=== PATIENT | male | born 1975 | race African-American/Black ===

== ENCOUNTER 2023-05-29 08:42 | Outpatient (OUT) | payer OTHER, SELFPAY ==
--- NOTE | 2023-05-29 08:53 | P.CN_ITS ---
Consult Note: HPI Data of Consult Patient: known to practice within the last 3 years Consult date: 05/29/23 Requesting Physician: WILLIS MARTINEZ NP Primary Care Provider: GILDARDO GONZALEZ Consult Narrative Narrative: Patient is here for f/u of chronic low back and left leg pain with numbness at times . He prefers no interventional tx at this time. Pain today is 4/10 . No new sensorimotor sx or bowel or bladder issues. Medication regimen assists patient to better complete ADLs. Denies adverse medication SE. OARRS reviewed. He would like to try aquatic therapy. cc:: CC: WILLIS MARTINEZ NP Review of Systems ROS0 Status of ROS 10 or more systems reviewed and unremarkable except as noted in history and below Musculoskeletal Reports: extremity pain Exam Constitutional Documenting provider has reviewed patient's vital signs: yes Common normals: no apparent distress, average body habitus, oriented x3, no limitations, healthy appearing, alert and well nourished General appearance: cooperative, comfortable and well developed Orientation/consciousness: Yes awake, Yes oriented to person, Yes oriented to place and Yes oriented to time [facility] Common normals: normocephalic and moist oral mucous membranes Respiratory Common normals: normal respiratory effort, no retractions and no use of accessory muscles Effort & inspection: able to speak in complete sentences and symmetric chest movement Back & Pelvis Lumbar spine/lower back: normal to inspection, pain with ROM, paraspinal muscle tenderness, paraspinal muscle spasm and straight leg raise negative bilaterally Extremity Common normals: normal to inspection, normal capillary refill and no pedal edema Assessment and Plan Assessment and Plan (1) Lumbar spondylosis: (2) Muscle spasm: Plan aquatic PT f/u 3 months
== END 2023-05-29 08:43 | disposition home or self-care (01) ==
LOC: PM 08:47
PROVIDERS: PCP Family Medicine; Visit Provider Nurse Practitioner
DX: M47.816 Spondylosis without myelopathy or radiculopathy, lumbar region (principal); M62.838 Other muscle spasm
CPT/HCPCS: G0463

== ENCOUNTER 2023-08-26 08:50 | Outpatient (OUT) | payer OTHER, SELFPAY ==
--- NOTE | 2023-08-26 09:33 | PM.CN ---
Consult Note: HPI Data of Consult Patient: known to practice within the last 3 years Requesting Physician: Jessica Soler NP Primary Care Provider: GILDARDO GONZALEZ Consult Narrative Reason for consult: f/u Narrative: John Rider a pleasant 48 year old male presents for evaluation and management of chronic low back pain. Pain 4/5 today in low back with intermittent radiculopathy to right and left lower leg. Pain aching today, tingling comes and goes in left leg. Patient has noticed benefit from current medication regimen without side effects, has failed to respond to procedures in the past. cc:: CC: Jessica Soler NP Review of Systems ROS Status of ROS 10 or more systems reviewed and unremarkable except as noted in history and below Musculoskeletal Reports: back pain Meds Home Medications and Allergies Home Medications Medication Instructions Recorded Confirmed Type aspirin 81 mg capsule 81 mg PO DAILY 05/29/23 05/29/23 History baclofen 10 mg tablet 10 mg PO Q8H PRN muscle spasm 05/29/23 05/29/23 History celecoxib 200 mg capsule 200 mg PO BID 05/29/23 05/29/23 History hydrocodone 5 mg-acetaminophen 325 1 tab PO TID 05/29/23 05/29/23 History mg tablet pregabalin 150 mg capsule 150 mg PO TID 05/29/23 05/29/23 History zolpidem 12.5 mg tablet,extended PO 05/29/23 History release,multiphase hydrocodone 5 mg-acetaminophen 325 1 tab PO TID PRN pain #90 tabs 06/18/23 Rx mg tablet hydrocodone 5 mg-acetaminophen 325 1 tab PO TID PRN pain #90 tabs 06/18/23 Rx mg tablet pregabalin 150 mg capsule (Lyrica) 150 mg PO TID #90 caps 06/18/23 Rx pregabalin 150 mg capsule (Lyrica) 150 mg PO TID #90 caps 06/18/23 Rx hydrocodone 5 mg-acetaminophen 325 1 tab PO TID PRN pain #90 tabs 07/21/23 Rx mg tablet hydrocodone 5 mg-acetaminophen 325 1 tab PO TID PRN pain #90 tabs 08/26/23 Rx mg tablet Allergies Allergy/AdvReac Type Severity Reaction Status Date / Time ciprofloxacin [From Cipro] Allergy Unknown Verified 05/29/23 13:50 Exam Constitutional Documenting provider has reviewed patient's vital signs: yes Common normals: no apparent distress, average body habitus, oriented x3, no limitations, healthy appearing, alert and well nourished General appearance: cooperative, comfortable and well developed Orientation/consciousness: Yes awake, Yes oriented to person, Yes oriented to place and Yes oriented to time [facility] Common normals: normocephalic and moist oral mucous membranes Respiratory Common normals: normal respiratory effort, no retractions and no use of accessory muscles Effort & inspection: able to speak in complete sentences and symmetric chest movement Back & Pelvis Lumbar spine/lower back: normal to inspection, pain with ROM, paraspinal muscle tenderness, paraspinal muscle spasm and straight leg raise negative bilaterally Extremity Common normals: normal to inspection, normal capillary refill and no pedal edema Assessment and Plan Assessment and Plan (1) Lumbar spondylosis: (2) Chronic prescription opiate use: Assessment and Plan: I have refilled the patient's opioid prescriptions at the above noted dose and schedule.? I feel these medications are improving the patient's quality of life and allow them to tolerate activities of daily living as well as participate in recreational activity.? The patient does not report intolerable side effects. The patient is NOT opioid naive and non-pharmacologic and non-opioid treatment has failed to significantly relieve the patient's pain and improve functionality. The patient has a diagnosis that is related to a somatic or visceral pain etiology. ? ?? I reviewed with the patient the potential risks and side effects with the use of? opioid medications including but not limited to respiratory depression,? sedation, and even . I verified the patient has access to naloxone should? these effects occur. I advised the patient to avoid the use of any other? sedation substances including alcohol, THC, and benzodiazepines while? taking opioid medications due to the risk of compounding side effects and? detrimental outcomes. I reviewed the [employer], pain treatment agreement, urine? drug screen, and opioid start talking forms. The patient was advised to let? their family know they had Naloxone in case they would need to administer? the medication.? ?? A drug screen was completed within the last year, and no aberrancies were noted regarding their use of controlled substances. The patient understands they are subject to the terms and conditions of the pain contract that they have signed. ? ?? I have checked an OARRS report on this patient today and there are no aberrancies noted in the prescribing history.? Patient able to do physical labor, maintain exercise regimen at the gym, care for self and family with the help of these medications no side effects takes TID PRN, encouraged to utilize BID-TID PRN with tylenol celebrex PRN heat/ice tens no current concerns for misuse/abuse/addiction (3) Muscle spasm: (4) Fusion of lumbar spine: Plan continue current medication regimen, extensive conversation today about care plan and goals to increase functional ability. Patient is very active with the help of his medication regimen and looking for ways to improve. restart aquatherapy discussed starting low back stretching regimen continue HEP narcan previously prescribed and discussed declining additional procedures, does not feel they benefit him enough to be worth it f/u 3 months for medication management
== END 2023-08-26 08:51 | disposition home or self-care (01) ==
PROVIDERS: PCP Family Medicine; Visit Provider Nurse Practitioner
DX: M47.816 Spondylosis without myelopathy or radiculopathy, lumbar region (principal); Z79.891 Long term (current) use of opiate analgesic
CPT/HCPCS: G0463

== ENCOUNTER 2023-12-02 10:09 | Outpatient (OUT) | payer OTHER, SELFPAY ==
--- OUTSIDE RECORDS SUMMARY | 2023-12-02 10:21 | XMS_ITS | CCD ---
Author Name Unknown Address [address] [place] [address] Organization [facility] Care Team Providers Care Marketing Strategy Manager Name Role Phone MD Omid Moran Attending Provider [phone] ., DR LAURA Joyce Admitting Unavailable KANG ., DR LAURA Joyce Attending Unavailable CARLOS, DR EWING Primary Care Unavailable GEORGES ., VICKIE Consulting Unavailable HALKER ., WILLIS Admitting Unavailable HALKER ., WILLIS Attending Unavailable CARLOS, DR EWING Primary Care Unavailable KANG ., DR LAURA Joyce Admitting Unavailable KANG ., DR LAURA Joyce Attending Unavailable DR KELLY PITTS Primary Care Unavailable GEORGES ., VICKIE Consulting Unavailable KANG ., DR LAURA Joyce Admitting Unavailable KANG ., DR LAURA Joyce Attending Unavailable CARLOS, DR EWING Primary Care Unavailable GEORGES ., VICKIE Consulting Unavailable LAKSHMIPATHY ., NARENDRANATH Admitting Rashmi vailable LAKSHMIPATHY ., ESTRELLA Attending Rashmi vailable DR KELLY PITTS Primary Care Unavailable LAKSHMIPATHY ., NARENDRANATH Consulting Rashmi vailable LEALEJANDRO Consulting Unavailable KANG ., DR LAURA Joyce Admitting Unavailable KANG ., DR LAURA Joyce Attending Unavailable DR KELLY PITTS Primary Care Unavailable GEORGES ., VICKIE Consulting Unavailable LAKSHMIPATHY ., NARENDRANATH Admitting Rashmi vailable LAKSHMIPATHY ., NARENDRANATH Attending Rashmi vailable DR KELLY PITTS Primary Care Unavailable LAKSHMIPATHY ., NARENDRANATH Consulting Rashmi vailable LAKSHMIPATHY ., NARENDRANATH Admitting Rashmi vailable LAKSHMIPATHY ., MOHANENDCMATH Attending Rashmi vailable DR KELLY PITTS Primary Care Unavailable HALKER ., WILLIS Consulting Unavailable KELLY PITTS Attending Unavailable Kelly Pitts MD Primary Care Provider [phone] Allergies Allergy Classification Reported Allergen(s) Allergy Type Date of Onset Reaction(s) Facility (1 source) Ciprofloxacin Drug Allergy 9 [facility] Repository (1 source) Ciprofloxacin Drug Allergy 3 GI intolerance [facility] Work Phone: Medications Current Medications Medication Drug Class(es) Dates Sig (Normalized) Sig (Original) amLODIPine 5 mg oral tablet (1 source) Dihydropyridine Calcium Channel Rober Start: 05-01-20 End: 04-30-20 take 1 tablet by mouth in the morning amLODIPine (Norvasc) 5 MG tablet Indications: Hypertension, unspecified type (CMS/HCC) Take 1 tablet (5 mg) by mouth in the morning. 90 tablet 3 05/01/2023 04/30/2024 Active aspirin 81 mg delayed release oral tablet (1 source) Platelet Aggregation Inhibitor, Nonsteroidal Anti-inflammatory Drug Start: 05-01-20 End: 04-30-20 take 1 tablet by mouth in the morning aspirin 81 MG EC tablet Indications: Type 2 diabetes mellitus without complication, without long-term current use of insulin (CMS/HCC) Take 1 tablet (81 mg) by mouth in the morning. 90 tablet 3 05/01/2023 04/30/2024 Active atorvastatin 10 mg oral tablet (1 source) HMG-CoA Reductase Inhibitor take 1 tablet by mouth in the morning atorvastatin (Lipitor) 10 MG tablet Take 10 mg by mouth in the morning. 0 Active celecoxib 200 mg oral capsule (1 source) Nonsteroidal Anti-inflammatory Drug take 1 capsule by mouth in the morning celecoxib (CeleBREX) 200 MG capsule Take 200 mg by mouth in the morning and 200 mg before bedtime. 0 Active hydroCHLOROthiazide 25 mg oral tablet (1 source) Thiazide Diuretic Start: 11-16-19 take 1 tablet by mouth in the morning hydroCHLOROthiazide (HYDRODiuril) 25 MG tablet Indications: Primary hypertension (CMS/HCC) Take 1 tablet (25 mg) by mouth in the morning. 90 tablet 0 11/16/2023 Active losartan potassium 100 mg oral tablet (1 source) Angiotensin 2 Receptor Rober Start: 11-11-19 24 take 1 tablet by mouth once daily losartan (Cozaar) 100 MG tablet Indications: Benign essential hypertension (CMS/HCC) take 1 tablet by mouth once daily 90 tablet 0 11/11/2023 Active metFORMIN hydrochloride 500 mg oral tablet (1 source) Biguanide Start: 06-05-20 End: 06-04-20 24 take 1 tablet by mouth in the morning metFORMIN (Glucophage) 500 MG tablet Indications: Type 2 diabetes mellitus without complication, without long-term current use of insulin (CMS/HCC) Take 1 tablet (500 mg) by mouth in the morning and 1 tablet (500 mg) in the evening. Take with meals. 180 tablet 3 06/05/2023 06/04/2024 Active pregabalin 150 mg oral capsule (1 source) take 1 capsule by mouth every twelve hours pregabalin (Lyrica) 150 MG capsule 1 capsule every 12 (twelve) hours. 0 Active SITagliptin 100 mg oral tablet (1 source) Dipeptidyl Peptidase 4 Inhibitor Start: 11-02-19 End: 11-01-19 take 1 tablet by mouth in the morning SITagliptin (Januvia) 100 MG tablet Indications: Type 2 diabetes mellitus without complication, without long-term current use of insulin (CMS/HCC) Take 1 tablet (100 mg) by mouth in the morning. 90 tablet 3 11/02/2023 11/01/2024 Active 24 hr testosterone 0.0833 mg/hr transdermal system (1 source) Androgen Start: 11-04-19 End: 12-04-19 apply 1 dose transdermal route every twenty-four hours in the morning testosterone (Androderm) 2 MG/24HR Indications: Hypogonadism in male Place 1 patch over 24 hours on the skin in the morning. 30 patch 0 11/04/2023 12/04/2023 Active zolpidem tartrate 12.5 mg extended release oral tablet (2 sources) gamma-Aminobutyric Acid-ergic Agonist Start: 11-27-19 take 1 tablet by mouth at bedtime zolpidem CR (Ambien CR) 12.5 MG ER tablet Indications: Primary insomnia take 1 tablet by mouth at bedtime 90 tablet 0 11/27/2023 Active Start: 09-04-2023 End: 11-27-2023 take 1 tablet by mouth at bedtime zolpidem CR (Ambien CR) 12.5 MG ER tablet Indications: Primary insomnia Take 1 tablet (12.5 mg) by mouth at bedtime. 90 tablet 0 09/04/2023 11/27/2023 Discontinued Problems Active Problems Problem Classification Problem Date Documented Date Episodic/Chronic Anxiety disorders (1 source) Generalized anxiety disorder; Translations: [Generalized anxiety disorder] Onset: 05-17-2010 06-11-2023 Chronic Attention-deficit, conduct, and disruptive behavior disorders (1 source) Attention deficit hyperactivity disorder, combined type; Translations: [Attention-deficit hyperactivity disorder, combined type] Onset: 12-13-2020 06-11-2023 Chronic Diabetes mellitus without complication (1 source) Type 2 diabetes mellitus without complication; Translations: [Type 2 diabetes mellitus without complications] Onset: 11-21-2019 06-11-2023 Chronic Disorders of lipid metabolism (1 source) Mixed hyperlipidemia; Translations: [Mixed hyperlipidemia] Onset: 12-13-2020 06-11-2023 Chronic Essential hypertension (1 source) Benign essential hypertension; Translations: [Essential (primary) hypertension] Onset: 05-08-2017 06-11-2023 Chronic Miscellaneous mental health disorders (2 sources) Primary insomnia; Translations: [Primary insomnia] Onset: 11-21-2019 11-26-2023 Chronic Mood disorders (1 source) Major depression, single episode; Translations: [Major depressive disorder, single episode, unspecified] Onset: 03-01-2021 06-11-2023 Chronic Other nervous system disorders (1 source) Other chronic pain; Translations: [OTHER CHRONIC PAIN] Onset: 2023 Chronic Other nervous system disorders (5 sources) Chronic pain syndrome; Translations: [CHRONIC PAIN SYNDROME] Onset: 05-26-2022 Chronic Other nervous system disorders (1 source) Chronic pain; Translations: [Other chronic pain] Onset: 09-03-2017 06-11-2023 Chronic Other nutritional; endocrine; and metabolic disorders (1 source) Morbid obesity; Translations: [Morbid (severe) obesity due to excess calories] Onset: 10-22-2016 06-11-2023 Chronic Spondylosis; intervertebral disc disorders; other back problems (13 sources) Spondylosis without myelopathy or radiculopathy, lumbar region; Translations: [Postlaminectomy syndrome, not elsewhere classified] Onset: 08-26-2019 Chronic Spondylosis; intervertebral disc disorders; other back problems (8 sources) Muscle spasm of back; Translations: [Intervertebral disc disorders with radiculopathy, lumbar region] Onset: 11-27-2022 Episodic Unclassified (4 sources) LOW BACK PAIN, UNSPECIFIED; Translations: [LOW BACK PAIN, UNSPECIFIED] Onset: 05-26-2022 Past or Other Problems Problem Classification Problem Date Documented Da te Episodic/Chronic Unclassified (1 source) LOW BACK PAIN, UNSPECIFIED; Translations: [LOW BACK PAIN, UNSPECIFIED] Onset: 05-22-2022 Results Test Name Value Interpretation Reference Range Facil ity XR LSPINE MIN 4 VIEWSon 05-0 XR LSPINE MIN 4 VIEWS EXAM: XR LSPINE MIN 4 VIEWS HISTORY: Post-laminectomy syndrome COMPARISON: None. TECHNIQUE: 2 views FINDINGS/IMPRESSION: Satisfactory alignment. Posterior left-sided transpedicular fusion of L4-L5 with disc spacers. Intact hardware. Multilevel endplate degenerative changes, disc disease, anterior spurring and facet arthropathy. No acute fracture or subluxation. Unremarkable soft tissues. Electronically authenticated by: ALEJANDRO VELARDE Date: 2023-02-16 12:36 Normal [facility] 04-30-2022 L -- ---- Specimen: [id number] Received: 05/01/22 Status: KIM Kim Num: [id number] Spec Type: Surgical Subm Dr: Omid Moran MD Tissues: A Skin-Other than Cyst, tag, debridement or plastic repair (CHEST WALL MASS) Procedures: HE Stain, Gross/Micro L4 ---- Patient Age/Sex Location Account Attending Physician ---- John Rider 47/M MD [id number] Omid Moran MD ---- SPEC NUM: [id number] RECD: 05/01/22 STATUS: KIM KIM NUM: [id number] COLLEEN: 04/30/[address] [facility] [address]: Omid Moran MD ENTERED: 05/01/[address] [facility] [address]: [facility] [place] SPEC TYPE: Surgical DEPT: S ENTERED BY: [id number] RECV BY: [id number] ORDERED: HE Stain, Gross/Micro L4 ORDERED: HE Stain, Gross/Micro L4 Pathological Diagnosis Soft tissue, chest wall, excision: - Ruptured and inflamed epidermal inclusion cyst Clinical Information Chest wall mass Gross Description Received in 10% neutral buffered formalin, labeled with the patient's name and chest wall mass is a 2.2 x 1.8 x 1.4 cm yellow osorio, rubbery tissue which has been previously partially incised revealing yellow red material surrounded by yellow, lobular fat. Furniture Stainer sections submitted labeled A1. (LG/JS) Microscopic Description One glass slide with H E stained material has been examined. The microscopic findings support the above pathologic diagnosis. [id number] ---- ---- Specimen: [id number] Received: 05/01/22 Status: KIM Romeromaksim Num: [id number] Spec Type: Surgical Subm Dr: Omid Moran MD Tissues: A Skin-Other than Cyst, tag, debridement or plastic repair (CHEST WALL MASS) Procedures: HE Stain, Gross/Micro L4 ---- Patient: John Rider [id number] (Continued) ---- Signed (signature on file) Nava Cox MD 05/02/22 [address] [facility] Encounters Encounter Date Encounter Type Care Provider Facility Start: 11-26-2023 Refill Kelly Zurita Work Phone: [facility] Comment on above: Primary insomnia Start: 11-02-2023 End: 11-02-2023 ambulatory KELLY PITTS Not Available Start: 05-28-2023 ambulatory WILLIS MARTINEZ . Facili ty:[facility] Start: 02-26-2023 End: 02-27-2023 ambulatory NARENDRANATH LAKSHMIPATHY . Facility:[facility] Start: 02-16-2023 End: 02-17-2023 ambulatory NARENDRANATH LAKSHMIPATHY . Facility:[facility] Start: 01-27-2023 End: 01-28-2023 ambulatory NARENDRANATH LAKSHMIPATHY . Facility:[facility] Start: 11-27-2022 End: 11-28-[address] LAURA KANG . Facility:[facility] Start: 08-21-2022 End: 08-22-[address] LAURA KANG . Facility:[facility] Start: 05-22-2022 End: 05-23-[address] LAURA KANG . Facility: Start: 04-30-2022 End: 04-30-2022 Departed Referred MD Omid Moran Work Phone: [facility] [place] Start: 03-27-2022 End: 03-28-[address] LAURA KANG . Facility: Plan of Treatment Date Care Activity Detail Author Start: 06-11-2024 Urine screening for protein Diabetes: Urine Protein Screening [facility] Start: 04-17-2024 Influenza vaccination Influenza Vacc ine (#1) [facility] Comment on above: Postponed from 06/19 (Patient Refused) Start: 02-01-2024 Hemoglobin A1c measurement Diabetes: Hemoglobin A1C [facility] Start: 12-03-2023 End: 12-03-2023 Patient encounter procedure 12/03/2023 3:20 PM EST Office Visit [facility] [address] [place] [address] Kelly Pitts MD [address] [place] [address] [facility] Start: 12-06-2021 Glaucoma screening Diabetes: R etinopathy Screening [facility] Start: 1975 Screening for malign ant neoplasm of colon [facility] Healthcare Payers Date Payer Category Payer Unknown FRONTPATH FRONTP ATH [id number] 2022-Present [address] [place] [phone] [id number] 1975 Unknown [id number] 1975 Unknown [id number] 1975 Unknown [id number] 1975 Unknown [id number] 1975 Unknown [id number] 1975 Unknown [id number] 1975 Unknown [id number] 1975 Unknown [id number] 1975 Unknown [id number] 1959 Unknown [id number] 1959 Unknown [id number] Self-pay Self Pay [id number] Social History Date Type Detail Facility Tobacco smoking status AKIS Unknown if ever smoked [facility] Work Phone: Start: 1975 Sex Assigned At Male F [facility] Start: 05-01-2023 Tobacco smoking status NHIS Never smoked tobacco [facility] Start: 05-01-2023 Tobacco use and exposure Smokeless tobacco non-user [facility] Start: 11-02-2023 Alcohol intake Ex-drinker (finding) [facility] Start: 11-02-2023 History of Social function [facility] Start: 11-02-2023 Tobacco use panel [facility] Start: 1975 Sex Assigned At Not on file N [facility] Start: 12-31-2022 Gender identity Identifies as male gender (finding) [facility] Medical Equipment Procedure Code Equipment Code Equipment Origin al Text Equipment Identifier Dates TEST once daily [id number] Start: 07-04-2022 Telephone encounter Note 11-27-2023 Telephone Encounter - Marybeth Montilla - 11/27/2023 9:47 AM EST Note Date & Type Note Facility 11-27-2023 Telephone encount er Note Pt is scheduled , but his testerone was denied and the pharmacy told patient that a PA needs done. Can that please get taken care of. [facility] Note 11-27-2023 Telephone Encounter - Marybeth Montilla - 11/27/2023 9:47 AM ESTTelephone Encounter - Kelly Pitts MD - 11/27/2023 8:25 AM EST Note Date & Type Note Facility 11-27-2023 Miscellaneous Notes Formattin g of this note might be different from the original. Pt is scheduled , but his testerone was denied and the pharmacy told patient that a PA needs done. Can that please get taken care of. Approving, but needs appt for additional refills. documented in this encounter [facility] Telephone encounter Note 11-27-2023 Telephone Encounter - Kelly Pitts MD - 11/27/2023 8:25 AM EST Note Date & Type Note Facility 11-27-2023 Telephone encount er Note Approving, but needs appt for additional refills. [facility] Consultation note 01-27-2023 Note Date & Type Note Facility 01-27-2023 Note CONSULTATION CONSULTATION DATE: 01/27/2023 TO: Kelly Pitts M.D. CHIEF COMPLAINT: Includes bilateral lower back pain. HISTORY: He reports the pain being 5-7/10 pain, sharp in character, increased with activities such as standing, walking and performing transitioning maneuvers. He feels most comfortable in the semi-recumbent position. Denies any change in bowel and bladder habits or new sensorimotor changes in his lower extremities. EXAM: Notable for patient having very mild myofascial spasm of the lumbar paravertebral muscles at best. I could not appreciate any pain with lumbar facet loading maneuvers. I could not elicit any pain pathology stemming from his SI joints or hip joints. IMPRESSION: Patient with chronic pain secondary to post laminectomy syndrome, possible lumbar paravertebral muscle spasms occurring bilaterally. RECOMMENDATIONS: I have recommended a urine toxicology screen at today's visit. We will proceed with a pill count in the near future. I have asked him to trial baclofen for his myofascial spasm, 10 mg pills, half a pill to one pill t. i.d. We had a discussion regarding reducing the use of his [place] at his next visit, once we have him on a baseline dose of baclofen that is tolerable by the patient. We will have him return to the office in two weeks' time. Will follow up with the nurse and monitor his response with change in medication. His SIA on today's visit was 22. As part of providing excellent, safe, comprehensive care, the following was completed at our patient's visit: 1. A medication reconciliation and review to ensure accurate knowledge of current/active medications, including asking our patients to inform us about any [id number] medications or herbal remedies/nutritional supplements/alternative remedies. 2. A review to specifically ensure our patients have had annual screening for: elevated body mass index (BMI, see intake chart for exact total), tobacco use, screening for depression, and screening for unhealthy alcohol use. When screening is concerning, patients are provided with education and the specific recommendation to discuss the concerning health issue and treatment options with their primary care provider. [facility] Consultation note 11-27-2022 Note Date & Type Note Facility 11-27-2022 Note CONSULTATION CONSULTATION DATE: 11/27/2022 HISTORY OF PRESENT ILLNESS: This is a 47-year-old gentleman who returns to the clinic for a three month follow up for his chronic lower back pain. The patient is complaining of 7/10 pain today. It is described as throbbing and stabbing. He is having left lower leg numbness, which is episodic, based on activity. 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 Twisting, pulling, lying, standing, walking greatly aggravate his pain. Medications currently include Celebrex 200 mg b.i.d., [place] 5/325 b.i.d., Lyrica 150 mg b.i.d. and Ambien 12 mg q.h.s. Patient's REVIEW OF SYSTEMS / PAST MEDICAL HISTORY / ALLERGIES and IMAGES have been reviewed and noted on the chart. PHYSICAL EXAM: VITAL SIGNS: Blood pressure is 161/100. Heart rate is 93. Temperature is 98. He is 6'3 , weighs 150 kg. GENERAL IMPRESSION: Pleasant, appropriate, in no acute distress. FOCUSED EXAM - BACK: Range of motion is functional in lateral rotation and flexion/extension. No reproduction of spinal axial pain upon direct compression of the facets. Doron's point is non-tender bilaterally. MUSCULOSKELETAL: Motor is 5/5 bilaterally. Slight muscle weakness noted to left anterior tibialis. Extensors are intact. Muscle tone is good. Patient walks unassisted. NEUROLOGICALLY: Patchy hypoesthesia noted along the L4-5 distribution to the level of the foot. Bilateral patellar reflexes are +1. DIAGNOSIS: Chronic lower back pain, lumbar radiculitis, lumbar degenerative disc disease and lumbar spondylosis. PLAN: Patient had asked for an increase in his [place], which we will not do. He did ask for an increase in his Lyrica due to the increased numbness to his lower leg. Therefore, we will increase his Lyrica 150 mg t.i.d. and refill his [place] at the regular dose of 5/325 b.i.d. Patient will be brought back to the clinic in two months' time and vitamin use was encouraged. Patient agrees with this plan and all questions answered. [facility] Consultation note 08-21-2022 Note Date & Type Note Facility 08-21-2022 Note CONSULTATION CONSULTATION DATE: 08/21/2022 This is a pleasant 47-year-old gentleman returning to the clinic for a 3-month follow-up for his chronic lower back pain. He was last seen on 05/22/2022 which at that time he was doing fairly well. 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 Due to that his pain is rated 6 out of 10 today. Medications include Lyrica 150 mg b.i.d., [place] 5/325 b.i.d., Celebrex 200 mg b.i.d. and Ambien 6.25 mg at h.s. The patient is able to move and function with ADLs but activity such as twisting, pushing, pulling, stairs, bending and lifting aggravate his pain. He does alternate heat and ice which is helpful to his back pain. He does have patchy hypesthesia to his left leg. REVIEW OF SYSTEMS, PAST MEDICAL HISTORY, ALLERGIES AND IMAGES: Have been reviewed and noted in the chart. PHYSICAL EXAM: VITAL SIGNS: Blood pressure 148/92, heart rate is 62. Height is 6'3 , weighs 267 lbs. GENERAL APPEARANCE: Pleasant, appropriate and in no acute distress. FOCUSED EXAM: BACK: Range of motion is functional in lateral rotation and flexion/extension. Paravertebral muscles are non-spasmodic. Mild reproduction of spinoaxial pain to compression along L3, L4 and L5 bilaterally, left is greater than right. Doron's point is nontender. MUSCULOSKELETAL: Motor is 5 out of 5 strength bilaterally. No vasomotor weakness noted. NEUROLOGICAL: Patchy hypesthesia noted diffusely along left lower extremity to the level of ankle. Reflexes are intact, 2 out of 2. DIAGNOSIS: Chronic pain syndrome, chronic lower back pain, lumbar spondylosis and lumbar radiculitis. PLAN: Supportive home measures were discussed with the patient with regards to heat and the use of Voltaren gel for isolated joints. We will refill Ambien today which we will increase to 10 mg q.h.s., [place] will be maintained at5/325 b.i.d., Celebrex 200 mg b.i.d. and Lyrica 50 mg b.i.d. We will see the patient in three months' time unless otherwise indicated. [facility] Consultation note 05-22-2022 Note Date & Type Note Facility 05-22-2022 Note CONSULTATION CONSULTATION DATE: 05/22/2022 HISTORY OF PRESENT ILLNESS: This is a 47-year-old male returning to the clinic, accompanied by his , for chronic lower back pain and a one month follow up. He was last seen on 03/27/2022 which, at that time, he was started on Cymbalta 30 mg. Patient stated, it has made very little difference and he discontinued it on his own. 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 It was discussed back, approximately six months ago, regarding a lumbar epidural steroid injection, and the patient denied. He does prefer to be just medically managed at this time, and states that his sleep pattern is off and he receives a minimal amount of sleep at night. He states, at times, he is awake 24-40 hours. He states that the decreased amount of sleep aggravates his pain and is requesting possible Ambien. He has been prescribed Ambien in the past. Current medications include [place] 5/325 b.i.d., Celebrex 200 mg b.i.d., Lyrica 150 mg b.i.d. Patient's REVIEW OF SYSTEMS / PAST MEDICAL HISTORY / ALLERGIES and IMAGES have been reviewed and they are noted on the chart. PHYSICAL EXAM: VITAL SIGNS: Blood pressure 150/104, heart rate is 85. Temperature is 98.2. He is 6'3 and weighs 122 kg. GENERAL APPEARANCE: Pleasant, appropriate, in no acute distress. is present. FOCUSED EXAM - BACK: Range of motion is functional in lateral rotation and flexion/extension. Minimal spinal axial pain to direct compression along the lower lumbar facets of L3, L4, L5 with radiating pain down the left lower extremity to the lateral aspect. Doron's point is non-tender. MUSCULOSKELETAL: Motor is intact, 5/5 bilaterally. Good muscle tone. Patient walks with a stable gait. No muscle atrophy noted. NEUROLOGICAL: Patchy hypoesthesia noted along the L5 dermatome to the left lower leg to the level just below the knee. +1 bilateral patellar and Achilles reflexes. IMPRESSION: Chronic pain syndrome and lower back pain. PLAN: He will be placed on Ambien CR 6.25 mg q.h.s. Refill for [place] 5/325 b.i.d., and Lyrica 150 mg b.i.d. will be sent for him. He will be followed up in the clinic in three months' time, and he was encouraged to participate in a vitamin regimen and nutrition importance was discussed. Patient agrees with the plan of care. See him in three months' time unless otherwise indicated. [facility] Consultation note 03-27-2022 Note Date & Type Note Facility 03-27-2022 Note CONSULTATION CONSULTATION DATE: 03/27/2022 This 47-year-old male accompanied by his to the clinic for a 3-month follow-up. He was last seen on 03/05/2022 and at that time he was followed up with Dr. Kang. At that time, he was not on his Celebrex or blood pressure medication. Today he reports he has been taking his Celebrex 200 mg b.i.d. in addition to his Lyrica 150 mg b.i.d. and [place] 5/325 b.i.d. The patient did have lumbar ablations back in August of 2022. The patient did initially report success with those ablations. The patient has been increasing his physical workout and he has been able to greatly improve his health in the way of diabetes. But the increased work out has resulted in increased pain. He is working with his PCP on antihypertensives at this time. He reports his pain is 4 out of 10 today to his lower lumbar area, left hip and leg. Activities such as standing, walking, ADLs and activity aggravate his pain. He uses heat nightly which decreases his pain. He denies any new radicular pain or vasomotor changes. REVIEW OF SYSTEMS, PAST MEDICAL HISTORY, ALLERGIES AND IMAGES: Have been reviewed and noted in the chart. PHYSICAL EXAM: VITAL SIGNS: Blood pressure 144/96, heart rate is 87, temperature is 98.2. Height is 6'3 , weighs 129/6 kg. GENERAL APPEARANCE: Pleasant, appropriate; is at bedside. FOCUSED EXAM: BACK: Range of motion is functional, lateral rotation and flexion/extension. No reproduction of spinoaxial pain to direct compression along the lumbar facets of L2, L3 and L4, L5 bilaterally. Doron's point is nontender bilaterally, Ko's and compression test mildly positive. No referral of pain to his groin. But to bilateral hips. MUSCULOSKELETAL: Motor is intact, 5 out of 5 strength bilaterally. Patient has good muscle tone and is stable upon ambulation. NEUROLOGICAL: Patchy hypesthesia noted along L5, S1 dermatome to the left lower leg to the level of the knee. Bilateral patellar is +1. DIAGNOSIS: Chronic lower back pain, lumbar degenerative disk, lumbar spondylosis. PLAN: It was decided to start the patient on Cymbalta 30 mg q. day to gain a better hold of his pain pattern. His [place] dose and frequency will not be changed. He was instructed to maintain his Celebrex as his anti-inflammatory. The patient and his stated understanding and agreed with the plan of care. They will be followed in the clinic in 8 weeks' time. [facility] Signed and Approved by: VICKIE GEORGES . 04/03/2022 16:03:00 [facility] Evaluation note Note Date & Type Note Facility Evaluation note No assessment information availa [facility] Work Phone: Evaluation note Note Date & Type Note Facility Evaluation note Diagnosis Primary insomnia Persistent disorder of initiating or maintaining sleep documented in this encounter [facility] Summary Purpose Family History No Family History Records FoundNo Family History Records FoundNo Family History Records Found Advance Directives No Advanced Directives Records FoundNo Advanced Directives Records FoundNo Advanced Directives Records Found Additional Source Comments Care Teams (unrecognized sec tion and content) Team Status: Inactive Member Role Status Dates Omid Moran MD Attending Provider Active Marketing Strategy Manager Relationship Specialty Start Date End Date Kelly Pitts MD [address] [place] [address] PCP - General Family Medicine 04/17/23 Goals (unrecognized section and content) Goals may be documented in a n alternate section (unrecognized sect ion and content) No Status Records FoundNo Status Records FoundNo Status Records Found INFORMATION SOURCE (unrecogn ized section and content) DATE CREATED AUTHOR 05/10/[address] [facility] DATE CREATED AUTHOR AUTHOR'S ORGANIZ ATION 03/02/2023 [facility] DATE CREATED AUTHOR AUTHOR'S ORGANIZ ATION 11/03/2023 [facility] EPIC Reason for Visit (unrecogniz ed section and content) Reason Comments Med Refill FOR RECORDS PERTAINING TO PATIENTS WHO ARE OR HAVE BEEN ENROLLED IN A CHEMICAL DEPENDENCY/SUBSTANCEABUSE PROGRAM, SOME INFORMATION MAY BE OMITTED. This clinical summary was aggregated from multiple sources. Caution should be exercised in using it in the provision of clinical care. This summary normalizes information from multiple sources, and as a consequence, information in this document may materially change the coding, format and clinical context of patient data. In addition, data may be omitted in some cases. CLINICAL DECISIONS SHOULD BE BASED ON THE PRIMARY CLINICAL RECORDS. [employer] provides no warranty or guarantee of the accuracy or completeness of information in this document.
--- NOTE | 2023-12-02 10:41 | PM.CN ---
Consult Note: HPI Data of Consult Patient: known to practice within the last 3 years Requesting Physician: Jessica Soler NP Primary Care Provider: GILDARDO GONZALEZ Consult Narrative Reason for consult: f/u Narrative: John Rider a pleasant 48 year old male presents for evaluation and management of chronic low back pain. Pain 4/10 today in low back with intermittent radiculopathy to right and left lower leg, does increase to 8/10 with activity, standing walking Pain aching today, tingling comes and goes in left leg. Patient has noticed benefit from current medication regimen without side effects, has failed to respond to procedures in the past. cc:: CC: Jessica Soler NP Review of Systems ROS Status of ROS 10 or more systems reviewed and unremarkable except as noted in history and below Musculoskeletal Reports: back pain Meds Home Medications and Allergies Home Medications Medication Instructions Recorded Confirmed Type aspirin 81 mg capsule 81 mg PO DAILY 05/29/23 05/29/23 History baclofen 10 mg tablet 10 mg PO Q8H PRN muscle spasm 05/29/23 05/29/23 History celecoxib 200 mg capsule 200 mg PO BID 05/29/23 05/29/23 History hydrocodone 5 mg-acetaminophen 325 1 tab PO TID 05/29/23 05/29/23 History mg tablet pregabalin 150 mg capsule 150 mg PO TID 05/29/23 05/29/23 History zolpidem 12.5 mg tablet,extended PO 05/29/23 History release,multiphase hydrocodone 5 mg-acetaminophen 325 1 tab PO TID PRN pain #90 tabs 06/18/23 Rx mg tablet hydrocodone 5 mg-acetaminophen 325 1 tab PO TID PRN pain #90 tabs 06/18/23 Rx mg tablet pregabalin 150 mg capsule (Lyrica) 150 mg PO TID #90 caps 06/18/23 Rx pregabalin 150 mg capsule (Lyrica) 150 mg PO TID #90 caps 06/18/23 Rx hydrocodone 5 mg-acetaminophen 325 1 tab PO TID PRN pain #90 tabs 07/21/23 Rx mg tablet hydrocodone 5 mg-acetaminophen 325 1 tab PO TID PRN pain #90 tabs 08/26/23 Rx mg tablet hydrocodone 5 mg-acetaminophen 325 1 tab PO TID PRN pain #90 tabs 09/21/23 Rx mg tablet hydrocodone 5 mg-acetaminophen 325 1 tab PO TID PRN pain #90 tabs 10/20/23 Rx mg tablet hydrocodone 5 mg-acetaminophen 325 1 tab PO TID PRN pain #90 tabs 11/18/23 Rx mg tablet Allergies Allergy/AdvReac Type Severity Reaction Status Date / Time ciprofloxacin [From Cipro] Allergy Unknown Verified 05/29/23 13:50 Exam Constitutional Documenting provider has reviewed patient's vital signs: yes Common normals: no apparent distress, oriented x3, healthy appearing, alert and well nourished General appearance: cooperative Orientation/consciousness: Yes awake, Yes oriented to person, Yes oriented to place and Yes oriented to time HENMT Common normals: normocephalic, hearing grossly normal bilaterally and moist oral mucous membranes Head and scalp: normocephalic Eye Common normals: PERRL Pupil: PERRL Neck & C-Spine Common normals: full ROM General: normal visual inspection Chest Common normals: inspection of chest normal Respiratory Common normals: normal respiratory effort, no retractions and no use of accessory muscles Effort & inspection: able to speak in complete sentences and symmetric chest movement Back & Pelvis Lumbar spine/lower back: normal to inspection, pain with ROM, paraspinal muscle tenderness, paraspinal muscle spasm and straight leg raise negative bilaterally Extremity Common normals: normal to inspection, normal capillary refill and no pedal edema Neuro Common normals: oriented x3, CN's II-XII intact bilaterally, moves all extremities, no focal motor deficits, no sensory deficits noted and deep tendon reflexes 2+ bilaterally Sensorium/orientation: alert Motor exam: strength 5/5 throughout and no movement abnormalities noted Psych Common normals: mental status grossly normal, thought process normal, cooperative, affect normal, speech normal and activity/motor behavior normal Speech: normal speech Thought process: normal thought process Results Additional Findings Additional findings: I have checked an OARRS report on this patient today and there are no aberrancies noted in the prescribing history.?? A drug screen was completed and reviewed within the last year, and if there has not been a drug screen completed we ordered one today to monitor higher risk, state monitored pain medication use. As part of providing excellent, safe, comprehensive care, the following was completed at our patient's visit: 1. A medication reconciliation and review to ensure accurate knowledge of current/active medications, including asking our patients to inform us about any [id number] medications or herbal remedies/nutritional supplements/alternative remedies. 2. A review to specifically ensure our patients have had annual screening for: elevated body mass index (BMI), tobacco use, screening for depression, and screening for unhealthy alcohol use. When screening is concerning, patients are provided with education and the specific recommendation to discuss the concerning health issue and treatment options with their primary care provider. Assessment and Plan Assessment and Plan (1) Lumbar spondylosis: (2) Chronic prescription opiate use: Assessment and Plan: I have refilled the patient's opioid prescriptions at the above noted dose and schedule.? I feel these medications are improving the patient's quality of life and allow them to tolerate activities of daily living as well as participate in recreational activity.? The patient does not report intolerable side effects. The patient is NOT opioid naive and non-pharmacologic and non-opioid treatment has failed to significantly relieve the patient's pain and improve functionality. The patient has a diagnosis that is related to a somatic or visceral pain etiology. ? ?? I reviewed with the patient the potential risks and side effects with the use of? opioid medications including but not limited to respiratory depression,? sedation, and even . I verified the patient has access to naloxone should? these effects occur. I advised the patient to avoid the use of any other? sedation substances including alcohol, THC, and benzodiazepines while? taking opioid medications due to the risk of compounding side effects and? detrimental outcomes. I reviewed the STAFF COMMAND AND CONTROL OFFICER, pain treatment agreement, urine? drug screen, and opioid start talking forms. The patient was advised to let? their family know they had Naloxone in case they would need to administer? the medication.? ?? A drug screen was completed within the last year, and no aberrancies were noted regarding their use of controlled substances. The patient understands they are subject to the terms and conditions of the pain contract that they have signed. ? ?? I have checked an OARRS report on this patient today and there are no aberrancies noted in the prescribing history.? Patient able to do physical labor, maintain exercise regimen at the gym, care for self and family with the help of these medications no side effects takes TID PRN, encouraged to utilize BID-TID PRN with tylenol celebrex PRN heat/ice tens no current concerns for misuse/abuse/addiction (3) Muscle spasm: (4) Fusion of lumbar spine: Plan continue current medication regimen. Patient is very active with the help of his medication regimen and looking for ways to improve. restart aquatherapy update UDS today continue HEP narcan previously prescribed and discussed declining additional procedures, does not feel they benefit him enough to be worth it f/u 3 months for medication management
== END 2023-12-02 10:10 | disposition home or self-care (01) ==
LOC: PM 10:09
PROVIDERS: PCP Family Medicine; Visit Provider Nurse Practitioner
DX: M47.816 Spondylosis without myelopathy or radiculopathy, lumbar region (principal); Z79.891 Long term (current) use of opiate analgesic; M62.838 Other muscle spasm; Z98.890 Other specified postprocedural states
CPT/HCPCS: G0463

== ENCOUNTER 2024-03-03 09:38 | Outpatient (OUT) | payer OTHER, SELFPAY ==
--- NOTE | 2024-03-03 09:54 | P.CN_ITS ---
Consult Note: HPI Data of Consult Patient: known to practice within the last 3 years Requesting Physician: Jessica Soler NP Primary Care Provider: GILDARDO GONZALEZ Consult Narrative Reason for consult: f/u Narrative: John Rider a pleasant 48 year old male presents for evaluation and management of chronic low back pain. Pain 4/10 today in low back with intermittent radiculopathy to right and left lower leg, does increase to 8/10 with activity, standing walking Pain aching today, tingling comes and goes in left leg. Patient has noticed benefit from current medication regimen without side effects, has failed to respond to procedures in the past. cc:: CC: Jessica Soler NP Review of Systems ROS Status of ROS 10 or more systems reviewed and unremark able except as noted in history and below Musculoskeletal Reports: back pain Meds Home Medications and Allergies Home Medications ?Medication ?Instructions ?Recorded ?Confirmed ?Type aspirin 81 mg capsule 81 mg PO DAILY 05/29/23 05/29/23 History baclofen 10 mg tablet 10 mg PO Q8H PRN muscle spasm 05/29/23 05/29/23 History celecoxib 200 mg capsule 200 mg PO BID 05/29/23 05/29/23 History zolpidem 12.5 mg tablet,extended PO 05/29/23 History release,multiphase pregabalin 150 mg capsule (Lyrica) 150 mg PO TID #90 caps 06/18/23 Rx hydrocodone 5 mg-acetaminophen 325 1 tab PO TID PRN pain #90 tabs 07/21/23 Rx mg tablet amlodipine 5 mg tablet 5 mg PO DAILY 12/02/23 12/02/23 History hydrochlorothiazide 25 mg tablet 25 mg PO DAILY 12/02/23 12/02/23 History losartan 100 mg tablet 100 mg PO DAILY 12/02/23 12/02/23 History metformin 500 mg tablet 500 mg PO BID 12/02/23 12/02/23 History pregabalin 150 mg capsule (Lyrica) 150 mg PO TID #90 caps 12/10/23 Rx hydrocodone 5 mg-acetaminophen 325 1 tab PO TID PRN pain #90 tabs 12/21/23 Rx mg tablet hydrocodone 5 mg-acetaminophen 325 1 tab PO TID PRN pain #90 tabs 01/18/24 Rx mg tablet pregabalin 150 mg capsule (Lyrica) 150 mg PO TID #90 caps 02/04/24 Rx celecoxib 200 mg capsule (Celebrex) 200 mg PO BID #60 caps 02/16/24 Rx hydrocodone 5 mg-acetaminophen 325 1 tab PO TID PRN pain #90 tabs 02/17/24 Rx mg tablet Allergies Allergy/AdvReac Type Severity Reaction Status Date / Time ciprofloxacin [From Cipro] Allergy Unknown Verified 12/02/23 11:53 Exam Constitutional Documenting provider has reviewed patient's vital signs: yes Common normals: no apparent distress, oriented x3, healthy appearing, alert and well nourished General appearance: cooperative Orientation/consciousness: Yes awake, Yes oriented to person, Yes oriented to place and Yes oriented to time HENMT Common normals: normocephalic, hearing grossly normal bilaterally and moist oral mucous membranes Head and scalp: normocephalic Eye Common normals: PERRL Pupil: PERRL Neck & C-Spine Common normals: full ROM General: normal visual inspection Chest Common normals: inspection of chest normal Respiratory Common normals: normal respiratory effort, no retractions and no use of accessory muscles Effort & inspection: able to speak in complete sentences and symmetric chest movement Back & Pelvis Lumbar spine/lower back: normal to inspection, pain with ROM, paraspinal muscle tenderness and straight leg raise negative bilaterally Extremity Common normals: normal to inspection, normal capillary refill and no pedal edema Neuro Common normals: oriented x3, CN's II-XII intact bilaterally, moves all extremities, no focal motor deficits, no sensory deficits noted and deep tendon reflexes 2+ bilaterally Sensorium/orientation: alert Motor exam: strength 5/5 throughout and no movement abnormalities noted Psych Common normals: mental status grossly normal, thought process normal, cooperative, affect normal, speech normal and activity/motor behavior normal Speech: normal speech Thought process: normal thought process Results Additional Findings Additional findings: If on a controlled substance or opioids, I have checked an OARRS report on this patient and there are no aberrancies noted in the prescribing history.??If on a controlled substance or opioid a drug screen was completed and reviewed within the last year, and if there has not been a drug screen completed we ordered one today to monitor higher risk, state monitored pain medication use. As part of providing excellent, safe, comprehensive care, the following was co mpleted at our patient's visit: 1. A medication reconciliation and review to ensure accurate knowledge of current/active medications, including asking our patients to inform us about any [id number] medications or herbal remedies/nutritional supplements/alternative remedies. 2. A review to specifically ensure our patients have had annual screening for screening for depression, screening for tobacco use, and screening for unhealthy alcohol use. For concerning screenings had a discussion with the patient, provided patient education, and recommended follow-up with primary care provider when appropriate. If patient noted with a risk of falling, they received education on strength, gait, and balance training to prevent future risk of falling. Assessment and Plan Assessment and Plan (1) Lumbar spondylosis: (2) Chronic prescription opiate use: Assessment and Plan: I have refilled the patient's opioid prescriptions at the above noted dose and schedule.? I feel these medications are improving the patient's quality of life and allow them to tolerate activities of daily living as well as participate in recreational activity.? The patient does not report intolerable side effects. The patient is NOT opioid naive and non-pharmacologic and non-opioid treatment has failed to significantly relieve the patient's pain and improve functionality. The patient has a diagnosis that is related to a somatic or visceral pain etiology. ? ?? I reviewed with the patient the potential risks and side effects with the use of? opioid medications including but not limited to respiratory depression,? sedation, and even . I verified the patient has access to naloxone should? these effects occur. I advised the patient to avoid the use of any other? sedation substances including alcohol, THC, and benzodiazepines while? taking opioid medications due to the risk of compounding side effects and? detrimental outcomes. I reviewed the UMBRELLA SUPERVISOR, pain treatment agreement, urine? drug screen, and opioid start talking forms. The patient was advised to let? their family know they had Naloxone in case they would need to administer? the medication.? ?? A drug screen was completed within the last year, and no aberrancies were noted regarding their use of controlled substances. The patient understands they are subject to the terms and conditions of the pain contract that they have signed. ? ?? I have checked an OARRS report on this patient today and there are no aberrancies noted in the prescribing history.? Patient able to do physical labor, maintain exercise regimen at the gym, care for self and family with the help of these medications no side effects takes TID PRN, encouraged to utilize BID-TID PRN with tylenol celebrex PRN heat/ice tens no current concerns for misuse/abuse/addiction (3) Muscle spasm: (4) Fusion of lumbar spine: (5) Failed back syndrome: Plan continue current medication regimen. Patient is very active with the help of his medication regimen finds benefit from norco 5-325 mg for 4 hours at time, notices improvement in ability to lift twist and perform activities. denies side effects. patient would like to restart aquatherapy close to home, but the pool is closed per pt. will call us for an order when it opens continue HEP narcan previously prescribed and discussed declining additional procedures, does not feel they benefit him enough to be worth it f/u 3 months for medication management
--- OUTSIDE RECORDS SUMMARY | 2024-03-03 09:58 | XMS_ITS | CCD ---
Author Organization [facility] Care Team Providers Care Fish Cleaner Machine Tender Name Role Phone MD Omid Moran Attending Provider KANG ., DR LAURA Joyce Admitting Unavailable [...] vailable LAKSHMIPATHY ., NARENDRANATH Attending Rashmi vailable CARLOS, DR EWING Primary Care Unavailable LAKSHMIPATHY ., NARENDRANATH Consulting Rashmi vailable LE, ALEJANDRO Consulting Unavailable KANG ., DR LAURA Joyce [...] Care Unavailable HALKER ., WILLIS Consulting Unavailable Kelly Pitts MD Primary Care Provider KELLY PITTS Attending Unavailable KELLY PITTS Attending Unavailable Allergies Allergy Classification Reported Allergen(s) Allergy Type Date of Onset Reaction(s) Facility (1 source) Ciprofloxacin Drug Allergy 9 [facility] Repository (1 source) Ciprofloxacin Drug Allergy 3 GI intolerance [facility] Work Phone: Medications Current Medications Medication Drug Class(es) Dates Sig (Normalized) Sig (Original) amLODIPine 5 mg oral tablet (1 source) Dihydropyridine Calcium Channel Rober Start: 05-01-20 End: 04-30-20 24 take 1 tablet by mouth in [...] Peptidase 4 Inhibitor Start: 11-02-19 End: 11-01-19 25 take 1 tablet by mouth in the [...] (2 sources) gamma-Aminobutyric Acid-ergic Agonist Start: 11-27-19 24 take 1 tablet by mouth at bedtime [...] Problems Problem Classification Problem Date Documented Da brittany Episodic/Chronic Unclassified (1 source) LOW BACK PAIN, [...] Unremarkable soft tissues. Electronically authenticated by: ALEJANDRO VELADRE Date: 2023-02-16 12:36 Normal [facility] 04-30-2022 L -- ---- Specimen: [id number] Received: 05/01/22 Status: KIM Kim Num: [id number] Spec Type: Surgical Subm Dr: Omid Moran MD Tissues: A Skin-Other than Cyst, tag, debridement or plastic repair (CHEST WALL MASS) Procedures: HE Stain, Gross/Micro L4 ---- Patient Age/Sex Location Account Attending Physician ---- MarianrajeevJohn O 47/M OR [id number] Omid Moran MD ---- SPEC NUM: [id number] RECD: 05/01/22 STATUS: KIM ALISA NUM: [id number] COLLEEN: 04/30/22 [facility] DR: Omid Moran MD ENTERED: 05/01/22-1251 [facility] [address]: Gordo [facility] SPEC TYPE: Surgical DEPT: S ENTERED BY: [id number] RECV BY: [id number] ORDERED: HE Stain, Gross/Micro L4 ORDERED: HE [...] red material surrounded by yellow, lobular fat. Wardrobe Stylist sections submitted labeled A1. (LG/JS) Microscopic Description One glass slide with H E stained material has been examined. The microscopic findings support the above pathologic diagnosis. [id number] ---- ---- Specimen: [id number] Received: 05/01/22 Status: KIM Kim Num: [id number] Spec Type: Surgical Subm Dr: Omid Moran MD Tissues: A Skin-Other than Cyst, tag, debridement or plastic repair (CHEST WALL MASS) Procedures: HE Stain, Gross/Micro L4 ---- Patient: John Rider [id number] (Continued) ---- Signed (signature on file) Nava Cox MD 05/02/22 [id number] [facility] Encounters Encounter Date Encounter Type Care Provider Facility Start: 02-18-2024 End: 02-18-2024 ambulatory KELLY PITTS Not Available Start: 11-26-2023 Refill Kelly Zurita Work Phone: [facility] Comment on above: Primary insomnia Start: 11-02-2023 [...] End: 05-23-[address] LAURA KANG . Facility:[facility] Start: 04-30-2022 End: 04-30-2022 Departed Referred MD Omid Moran Work Phone: [facility] [place] Start: 03-27-2022 End: 03-28-[address] LAURA [...] 12/03/2023 3:20 PM EST Office Visit [facility] [address] [place] [id number] Kelly Pitts MD [address] [place], [place] [id number] [facility] Start: 12-06-2021 Glaucoma screening Diabetes: R etinopathy Screening [facility] Start: 1975 Screening for malign ant neoplasm of colon [facility] Payers Date Payer Category Payer Unknown FRONTPATH FRONTP ATH [id number] 2022-Present [address] [place] [address] [id number] 1975 Unknown [id number] 1975 Unknown [id number] 1975 Unknown [id number] 1975 Unknown [id number] [id number] 1975 Unknown [id number] [id number] 1975 Unknown [id number] [id number] 1975 Unknown [id number] 1975 Unknown [id number] 1975 Unknown [id number] [id number] 1975 Unknown [id number] 1959 Unknown [id number] 1959 Unknown [id number] Self-pay Self Pay [id number] Social History Date Type Detail Facility Tobacco smoking status NMIS Unknown if ever smoked [facility] Work Phone: Start: 1975 Sex Assigned At Male [facility] Start: 05-01-2023 Tobacco smoking status NHIS Never smoked tobacco [facility] Start: 05-01-2023 Tobacco use and exposure Smokeless tobacco non-user [facility] Start: 11-02-2023 Alcohol intake Ex-drinker (finding) [facility] Start: 11-02-2023 History of Social function [facility] Start: 11-02-2023 Tobacco use panel [facility] Start: 1975 Sex Assigned At Not on file [facility] Start: 12-31-2022 Gender identity Identifies as male gender (finding) [facility] Medical Equipment Procedure Code Equipment Code Equipment Origin al Text Equipment Identifier Dates TEST once daily [id number] Start: 07-04-2022 Telephone encounter Note 11-27-2023 Telephone Encounter - Marybeth Mnotilla - 11/27/2023 9:47 AM EST Note Date & Type Note Facility 11-27-2023 Telephone encount er Note Pt is scheduled , but his testerone was denied and the pharmacy told patient that a PA needs done. Can that please get taken care of. [facility] Note 11-27-2023 Telephone Encounter - Marybeth [...] for additional refills. documented in this encounter [facility] Telephone encounter Note 11-27-2023 Telephone Encounter - Kelly Pitts MD - 11/27/2023 8:25 AM EST Note Date & Type Note Facility 11-27-2023 Telephone encount er Note Approving, but needs appt for additional refills. [facility] Consultation note 01-27-2023 Note Date & [...] discussion regarding reducing the use of his Warren at his next visit, once we have [...] our patients to inform us about any kbac-wxp-loexxix medications or herbal remedies/nutritional supplements/alternative remedies. 2. [...] options with their primary care provider. [facility] Consultation note 11-27-2022 Note Date & Type [...] Medications currently include Celebrex 200 mg b.i.d., Warren 5/325 b.i.d., Lyrica 150 mg b.i.d. and [...] had asked for an increase in his Warren, which we will not do. He did ask for an increase in his Lyrica due to the increased numbness to his lower leg. Therefore, we will increase his Lyrica 150 mg t.i.d. and refill his Warren at the regular dose of 5/325 b.i.d. Patient will be brought back to the clinic in two months' time and vitamin use was encouraged. Patient agrees with this plan and all questions answered. [facility] Consultation note 08-21-2022 Note Date & Type [...] today. Medications include Lyrica 150 mg b.i.d., Warren 5/325 b.i.d., Celebrex 200 mg b.i.d. and [...] we will increase to 10 mg q.h.s., Warren will be maintained at5/325 b.i.d., Celebrex 200 mg b.i.d. and Lyrica 50 mg b.i.d. We will see the patient in three months' time unless otherwise indicated. [facility] Consultation note 05-22-2022 Note Date & Type [...] Ambien in the past. Current medications include Warren 5/325 b.i.d., Celebrex 200 mg b.i.d., Lyrica [...] Ambien CR 6.25 mg q.h.s. Refill for Warren 5/325 b.i.d., and Lyrica 150 mg b.i.d. will be sent for him. He will be followed up in the clinic in three months' time, and he was encouraged to participate in a vitamin regimen and nutrition importance was discussed. Patient agrees with the plan of care. See him in three months' time unless otherwise indicated. [facility] Consultation note 03-27-2022 Note Date & Type [...] to his Lyrica 150 mg b.i.d. and Warren 5/325 b.i.d. The patient did have lumbar [...] better hold of his pain pattern. His Warren dose and frequency will not be changed. He was instructed to maintain his Celebrex as his anti-inflammatory. The patient and his stated understanding and agreed with the plan of care. They will be followed in the clinic in 8 weeks' time. [facility] Signed and Approved by: VICKIE GEORGES . 04/03/2022 16:03:00 [facility] Evaluation note Note Date & Type Note Facility Evaluation note No assessment information availa [facility] Work Phone: Evaluation note Note Date & [...] Dates Omid Moran MD Attending Provider Active Fish Cleaner Machine Tender Relationship Specialty Start Date End Date Kelly Pitts MD [address] [place] [address] PCP - General Family Medicine 04/17/23 Goals (unrecognized section and content) Goals may be documented in a n alternate section (unrecognized sect ion and content) No Status Records FoundNo Status Records FoundNo Status Records Found INFORMATION SOURCE (unrecogn ized section and content) DATE CREATED AUTHOR 05/10/2022 [facility] DATE CREATED AUTHOR AUTHOR'S ORGANIZ ATION 03/02/2023 [facility] DATE CREATED AUTHOR AUTHOR'S ORGANIZ ATION 02/19/2024 [facility] Reason for Visit (unrecogniz ed section and [...] BE BASED ON THE PRIMARY CLINICAL RECORDS. [facility] [employer] [facility]. provides no warranty or guarantee of the accuracy or completeness of information in this document.
== END 2024-03-03 09:39 | disposition home or self-care (01) ==
LOC: PM 09:38
PROVIDERS: PCP Family Medicine; Visit Provider Nurse Practitioner
DX: M47.816 Spondylosis without myelopathy or radiculopathy, lumbar region (principal); Z79.891 Long term (current) use of opiate analgesic; M62.838 Other muscle spasm; Z98.890 Other specified postprocedural states
CPT/HCPCS: G0463

== ENCOUNTER 2024-06-07 12:32 | Outpatient (OUT) | payer OTHER, SELFPAY ==
--- NOTE | 2024-06-07 | CONS_ITS ---
CONSULTATION DATE: 06/07/2024 TO: Kvng Chand M.D. CHIEF COMPLAINT: Includes lower back pain. HISTORY: He returns today complaining of 3-5/10 pain in his lower back, slightly more on his left than the right side, described as a deep, aching pain with a sharp component, increased with lifting maneuvers, pushing/pulling maneuvers, as well as prolonged standing and walking. He is most comfortable in the semi-recumbent position. Denies any change in bowel and bladder habits or new sensorimotor changes in the lower extremities. His SIA on today?s visit is 36%. MEDICATIONS: He continues to use [place] 5 mg t.i.d. Baclofen is used infrequently. He is also on Celebrex 200 mg b.i.d. and Lyrica 150 t.i.d. He reports the medication in general helps his pain symptoms, improve his quality of life and there are no apparent signs of opioid acceleration. He appears to be using it appropriately, without any side effects. EXAMINATION: Notable for patient having no clinical radiculopathy or myelopathy involving his lower extremities on today?s visit; however, he did have significant pain with lumbar flexion and extension maneuvers. He had point tenderness overlying the L4-5 interspace, more to the left side. He had significant myofascial spasm of the lumbar paravertebral muscles, also more on the left side. I could not appreciate any signs consistent with SI joint dysfunction on today?s visit. IMPRESSION: Our impression is patient with chronic pain secondary to post laminectomy syndrome with potentially new myofascial dysfunction with myalgia of the lower paravertebral muscles and possible lumbago from near the surgical site. RECOMMENDATIONS: Will obtain lumbar spine films with flexion/extension views to evaluate the integrity of the fusion construct. I will increase his baclofen 10 mg, half to one t.i.d. I have asked him to reduce the use of [place] 5 mg pills, more than 75 pills to last him one month?s time and not for daily use. I will see the patient back in the office in one month?s time or sooner if needed. As part of providing excellent, safe, comprehensive care, the following was completed at our patient's visit: 1. A medication reconciliation and review to ensure accurate knowledge of current/active medications, including asking our patients to inform us about any qiys-gro-yivveti medications or herbal remedies/nutritional supplements/alternative remedies. 2. A review to specifically ensure our patients have had annual screening for: elevated body mass index (BMI, see intake chart for exact total), tobacco use, screening for depression, and screening for unhealthy alcohol use. When screening is concerning, patients are provided with education and the specific recommendation to discuss the concerning health issue and treatment options with their primary care provider. [facility]
--- OUTSIDE RECORDS SUMMARY | 2024-06-07 12:38 | XMS_ITS | CCD ---
Author Organization [facility] CliniSyid Care Team Providers Care Sole Sewer Hand Name Role Phone MD Omid Moran Attending Provider [phone] KANG ., DR LAURA Joyce Admitting Unavailable KANG ., DR LAURA Joyce Attending Unavailable GISSELLE, DR EWING Primary Care Unavailable GEORGES ., VICKIE Consulting Unavailable HALKER ., WILLIS Admitting Unavailable HALKER ., WILLIS Attending Unavailable GISSELLE, DR EWING Primary Care Unavailable KANG ., DR LAURA Joyce Admitting Unavailable KANG ., DR LAURA Joyce Attending Unavailable GISSELLE, DR EWING Primary Care Unavailable GEORGES ., VICKIE Consulting Unavailable KANG ., DR LAURA Joyce Admitting Unavailable KANG ., DR LAURA Joyce Attending Unavailable GISSELLE, DR EWING Primary Care Unavailable GEORGES ., VICKIE Consulting Unavailable LAKSHMIPATHY ., NARENDRANATH Admitting Rashmi vailable LAKSHMIPATHY ., NARENDRANATH Attending Rashmi vailable GISSELLE, DR EWING Primary Care Unavailable LAKSHMIPATHY ., NARENDRANATH Consulting Rashmi vailable ALEJANDRO VELARDE Consulting Unavailable KANG ., DR LAURA Joyce Admitting Unavailable KANG ., DR LAURA Joyce Attending Unavailable GISSELLE, DR EWING Primary Care Unavailable GEORGES ., [...] PITTS Attending Unavailable KELLY PITTS Attending Unavailable RACQUEL MULLIGAN Attending Unavailable MAYNOR GUTIERREZ Referring Unavailable MAYNOR GUTIERREZ Primary Care Unavailable MAYNOR GUTIERREZ Referring Unavailable MAYNOR GUTIERREZ Primary Care Unavailable Allergies Allergy Classification Reported Allergen(s) Allergy Type Date of Onset Reaction(s) Facility (1 source) Ciprofloxacin Drug Allergy 9 [facility] Repository (3 sources) Ciprofloxacin; Translations: [CIPROFLOXACIN] Drug Allergy 2 GI intolerance [facility] Work Phone: (2 sources) Morphine; Translations: [MORPHINE] Drug Allergy 2 [facility] Repository Medications Current Medications Medication Drug Class(es) Dates [...] Nonsteroidal Anti-inflammatory Drug Start: 05-01-20 End: 04-30-20 24 take 1 [...] tablet (1 source) Thiazide Diuretic Start: 11-16-19 24 take 1 tablet by mouth in [...] to excess calories] Onset: 10-22-2016 06-11-2023 Chronic Other screening for suspected conditions (not mental disorders or infectious disease) (1 source) Encounter for screening for malignant neoplasm of colon; Translations: [Encounter for screening for malignant neoplasm of colon] Onset: 06-01-2024 Episodic Spondylosis; intervertebral disc disorders; other back problems (13 sources) Spondylosis without myelopathy or radiculopathy, lumbar region; Translations: [Postlaminectomy syndrome, not elsewhere classified] Onset: 08-26-2019 Chronic Spondylosis; intervertebral disc disorders; other back problems (8 sources) Muscle spasm of back; Translations: [Intervertebral disc disorders with radiculopathy, lumbar region] Onset: 11-27-2022 Episodic Unclassified (4 sources) LOW BACK PAIN, UNSPECIFIED; Translations: [LOW BACK PAIN, UNSPECIFIED] Onset: 05-26-2022 Unclassified (1 source) Colon Cancer Screening Onset: 06-01-2024 Past or Other Problems Problem Classification Problem [...] by: ALEJANDRO VELARDE Date: 2023-02-16 12:36 Normal [facility] 04-30-2022 L -- ---- Specimen: [id number] Received: 05/01/22 Status: KIM Kim Num: [id number] Spec Type: Surgical Subm Dr: Omid Moran MD Tissues: A Skin-Other than Cyst, tag, debridement or plastic repair (CHEST WALL MASS) Procedures: HE Stain, Gross/Micro L4 ---- Patient Age/Sex Location Account Attending Physician ---- John Rider 47/M [place] [id number] Omid Moran MD ---- SPEC NUM: [id number] RECD: 05/01/22 STATUS: KIM KIM NUM: [id number] COLLEEN: 04/30/228543 [facility] DR: Omid Moran MD ENTERED: 05/01/22-1253 [facility] DR: Gordo [facility] SPEC TYPE: Surgical DEPT: S ENTERED BY: [id number] RECV BY: [id number] ORDERED: HE Stain, Gross/Micro L4 ORDERED: HE [...] red material surrounded by yellow, lobular fat. Balance Sheet Analyst sections submitted labeled A1. (LARA/JS) Microscopic Description One glass slide with H E stained material has been examined. The microscopic findings support the above pathologic diagnosis. [id number] ---- ---- Specimen: [id number] Received: 05/01/22 Status: KIM Judy Num: [id number] Spec Type: Surgical Subm Dr: Omid Moran MD Tissues: A Skin-Other than Cyst, tag, debridement or plastic repair (CHEST WALL MASS) Procedures: HE Stain, Gross/Micro L4 ---- Patient: John Rider [id number] (Continued) ---- Signed (signature on file) Nava Cox MD 05/02/22 1659 [facility] Encounters Encounter Date Encounter Type Care Provider Facility Start: 06-02-2024 End: 06-02-2024 ambulatory MAYNOR GUTIERREZ [facility] Start: 06-01-2024 End: 06-01-2024 ambulatory RACQUEL Dawkins MULLIGAN [facility] Start: 02-18-2024 End: 02-18-2024 ambulatory KELLY PITTS Not Available Start: 11-26-2023 Refill Kelly Keene Gisselle Gauri Zurita Work Phone: [facility] Comment on above: Primary insomnia Start: 11-02-2023 [...] Departed Referred MD Omid Moran Work Phone: [facility] [place] Start: 03-27-2022 End: 03-28-[address] LAURA KANG . Facility: Plan of Treatment Date Care Activity Detail Author Start: 06-11-2024 Urine screening for protein Diabetes: Urine Protein Screening [facility] Start: 04-17-2024 Influenza vaccination Influenza Vacc ine (#1) [facility] Comment on above: Postponed from 06/19 (Patient Refused) Start: 02-01-2024 Hemoglobin A1c measurement Diabetes: Hemoglobin A1C [facility] Start: 12-03-2023 End: 12-03-2023 Patient encounter procedure 12/03/2023 3:20 PM EST Office Visit [facility] [address] [place] [address] Kelly Pitts MD [address] [place] [address] [facility] Start: 12-06-2021 Glaucoma screening Diabetes: R etinopathy Screening [facility] Start: 1975 Screening for malign ant neoplasm of colon [facility] Payers Date Payer Category Payer Unknown [employer]ONTP[employer] FRONTP ATH [id number] 2022-Present [address] [place] [address] [id number] 1975 Unknown [id number] 1975 Unknown [id number] [id number] 1975 Unknown [id number] [id number] 1975 Unknown [id number] [id number] 1975 Unknown [id number] [id number] 1975 Unknown [id number] [id number] 1975 Unknown [id number] [id number] 1975 Unknown [id number] 2.16.840.1.278123.3.579.2.593 1975 Unknown [id number] 2.16.840.1.983660.3.579.2.1259 1975 Unknown [id number] 2.16.840.1.243154.3.579.2.1259 1975 Unknown [id number] 2.16.840.1.875088.3.579.2.1286 1975 Unknown [id number] [id number] 1959 Unknown [id number] 1959 Unknown [id number] Self-pay Self Pay [id number] Social History Date Type Detail Facility Tobacco smoking status DCIS Unknown if ever smoked [facility] Work Phone: Start: 1975 Sex Assigned At Male F [facility] Start: 05-01-2023 Tobacco smoking status NHIS Never smoked tobacco [facility] Start: 05-01-2023 Tobacco use and exposure Smokeless tobacco non-user [facility] Start: 11-02-2023 Alcohol intake Ex-drinker (finding) [facility] Start: 11-02-2023 History of Social function [facility] Start: 11-02-2023 Tobacco use panel [facility] Start: 1975 Sex Assigned At Not on file [facility] Start: 12-31-2022 Gender identity Identifies as male gender (finding) [facility] Medical Equipment Procedure Code Equipment Code Equipment Origin al Text Equipment Identifier Dates TEST once daily [id number] Start: 07-04-2022 Telephone encounter Note 11-27-2023 Telephone [...] for additional refills. documented in this encounter [facility] Telephone encounter Note 11-27-2023 Telephone Encounter - Kelly Pitts MD - 11/27/2023 8:25 AM EST Note Date & Type Note Facility 11-27-2023 Telephone encount er Note Approving, but needs appt for additional refills. [facility] Consultation note 01-27-2023 Note Date & Type [...] discussion regarding reducing the use of his [place] at his next visit, once we have [...] our patients to inform us about any pfry-sbg-yalzamu medications or herbal remedies/nutritional supplements/alternative remedies. 2. [...] options with their primary care provider. [facility] Consultation note 11-27-2022 Note Date & [...] Medications currently include Celebrex 200 mg b.i.d., [place] 5/325 b.i.d., Lyrica 150 mg b.i.d. and [...] had asked for an increase in his [place], which we will not do. He did ask for an increase in his Lyrica due to the increased numbness to his lower leg. Therefore, we will increase his Lyrica 150 mg t.i.d. and refill his [place] at the regular dose of 5/325 b.i.d. Patient will be brought back to the clinic in two months' time and vitamin use was encouraged. Patient agrees with this plan and all questions answered. [facility] Consultation note 08-21-2022 Note Date & [...] today. Medications include Lyrica 150 mg b.i.d., [place] 5/325 b.i.d., Celebrex 200 mg b.i.d. and [...] we will increase to 10 mg q.h.s., [place] will be maintained at5/325 b.i.d., Celebrex 200 mg b.i.d. and Lyrica 50 mg b.i.d. We will see the patient in three months' time unless otherwise indicated. [facility] Consultation note 05-22-2022 Note Date & [...] Ambien in the past. Current medications include [place] 5/325 b.i.d., Celebrex 200 mg b.i.d., Lyrica [...] Ambien CR 6.25 mg q.h.s. Refill for [place] 5/325 b.i.d., and Lyrica 150 mg b.i.d. will be sent for him. He will be followed up in the clinic in three months' time, and he was encouraged to participate in a vitamin regimen and nutrition importance was discussed. Patient agrees with the plan of care. See him in three months' time unless otherwise indicated. [facility] Consultation note 03-27-2022 Note Date & [...] to his Lyrica 150 mg b.i.d. and [place] 5/325 b.i.d. The patient did have lumbar [...] better hold of his pain pattern. His [place] dose and frequency will not be changed. He was instructed to maintain his Celebrex as his anti-inflammatory. The patient and his stated understanding and agreed with the plan of care. They will be followed in the clinic in 8 weeks' time. [facility] Signed and Approved by: VICKIE GEORGES . 04/03/2022 16:03:00 [facility] Evaluation note Note Date & Type Note Facility Evaluation note No assessment information [facility] Work Phone: Evaluation note Note Date & [...] Dates Omid Moran MD Attending Provider Active Sole Sewer Hand Relationship Specialty Start Date End Date Kelly Pitts MD [address] [place] [address] PCP - General Family Medicine 04/17/23 Goals (unrecognized section and content) Goals may be documented in a n alternate section (unrecognized sect ion and content) No Status Records FoundNo Status Records FoundNo Status Records FoundNo Status Records FoundNo Status Records Found INFORMATION SOURCE (unrecogn ized section and content) DATE CREATED AUTHOR 05/10/2022 [facility] DATE CREATED AUTHOR AUTHOR'S ORGANIZ ATION 03/02/2023 [facility] DATE CREATED AUTHOR AUTHOR'S ORGANIZ ATION 02/19/2024 [facility] EP[facility] DATE CREATED AUTHOR AUTHOR'S ORGANIZ ATION 06/03/2024 [facility] DATE CREATED AUTHOR AUTHOR'S ORGANIZ ATION 06/04/2024 [facility] Reason for Visit (unrecogniz ed section and [...] BE BASED ON THE PRIMARY CLINICAL RECORDS. [facility] [employer] provides no warranty or guarantee of the accuracy or completeness of information in this document.
== END 2024-06-07 12:33 | disposition home or self-care (01) ==
LOC: PM 12:32
PROVIDERS: PCP Family Medicine; Visit Provider Anesthesiology Pain Medicine
DX: M96.1 Postlaminectomy syndrome, not elsewhere classified (principal); M79.18 Myalgia, other site; M54.50 Low back pain, unspecified
CPT/HCPCS: G0463